=== PATIENT | female | born 1950 | race Caucasian/White ===

== ENCOUNTER → 2024-08-12 | Outpatient (CLI) | payer MEDICARE ==
[2024-08-12 12:57] LABS: Partial Thromboplastin Time 22.8 sec (22.0-30.0)
[2024-08-12 13:03] LABS: Prothrombin Time 10.8 sec (10.0-12.5)
--- NOTE | 2024-08-12 13:17 | CT ---
EXAMINATION TYPE: CT right knee - ZANDRA Protocol DATE OF EXAM: 08/12/2024 12:37 PM COMPARISON: None. CLINICAL INDICATION: Female, 74 years old with history of M17.11 UNILATERAL PRIMARY OSTEOAR; PHH, rig ht zandra knee, pain, TECHNIQUE: Axial images were obtained of the bilateral hips, knee and bilateral ankles: CT right kne e - ZANDRA Protocol, Additional coronal and sagittal reformatted images and soft tissue and bone window were obtained for review of the bilateral hips, knee and bilateral ankles. Contrast used: mL of , (None if empty) Oral contrast used: (None if empty) CT DLP: 763 mGycm, Automated exposure control for dose reduction was used. FINDINGS: The visualized portion of the hips demonstrate mild osteoarthrosis changes with osteophyte formation of the acetabulum. No acute intrapelvic process. The bony structures of the pelvis are intact. The visualized knee demonstrates osteophyte formation of the tibial plateau, the patella and femoral condyles. There is mild subchondral sclerosis of the femoral condyles and tibial plateau. There is j oint space narrowing. No evidence of fracture. The visualized ankles demonstrates multifocal osteoarthrosis changes with osteophyte formation and mi ld joint space narrowing. No evidence of fractures. Other: Scattered colonic diverticula. Fatty umbilical hernia. Fat-containing inguinal hernias bilater ally. Severe atherosclerosis throughout the arterial vasculature visualized. IMPRESSION: Severe osteoarthrosis changes of the knee. [facility], , 08/12/2024 1:14 PM
[2024-08-12 18:42] LABS: HGB 13.8 g/dL (12.0-15.0); MCH 32.5 pg (27.0-32.0); MCHC 32.9 g/dL (32.0-37.0); MCV 98.8 FL (80.0-97.0); Mean Platelet Volume 9.9 FL (9.5-12.2); NRBC Per 100 WBC 0.02 X 10*3/uL (0.00-0.01); Platelet Count 280 X 10*3/uL (140-440); RBC 4.25 X 10*6/uL (4.10-5.20); RDW 14.7 % (11.5-14.5); WBC 7.56 X 10*3/uL (4.50-10.00)
[2024-08-12 19:17] LABS: ALT 22 U/L (8-44); AST 25 U/L (13-35); Albumin 4.5 g/dL (3.8-4.9); Albumin/Globulin Ratio 2.14 Ratio (1.60-3.17); Alkaline Phosphatase 35 U/L (41-126); Blood Urea Nitrogen 17.1 mg/dL (9.0-27.0); Calcium 10.2 mg/dL (8.7-10.3); Carbon Dioxide 25.5 mmol/L (21.6-31.8); Chloride 108 mmol/L (96-109); Globulin 2.1 g/dL (1.6-3.3); Glucose 128 mg/dL (70-110); Potassium 4.9 mmol/L (3.5-5.5); Sodium 148 mmol/L (135-145); Total Bilirubin 1.8 mg/dL (0.3-1.2); Total Protein 6.6 g/dL (6.2-8.2)
== END | disposition home or self-care (01) ==
LOC: RADCTMAIN 11:37
PROVIDERS: ATTEND Orthopaedic Surgery
DX: Z01.818 Encounter for other preprocedural examination (principal); M17.11 Unilateral primary osteoarthritis, right knee; M21.061 Valgus deformity, not elsewhere classified, right knee
CPT/HCPCS: 80053; 83036; 85027; 85610; 85730

== ENCOUNTER → 2024-08-19 | Outpatient (CLI) | payer MEDICARE | END | disposition home or self-care (01) | LOC: LABWHC1 09:03 | PROVIDERS: ATTEND Orthopaedic Surgery | DX: Z01.812 Encounter for preprocedural laboratory examination (principal) | CPT/HCPCS: 86850; 86900; 86901 ==

== ENCOUNTER 2024-08-27 11:19 | Day surgery (SDC) | payer MEDICARE ==
[~2024-08-27 11:19] MED LIST: HYDROmorphone 0.5 MG/0.5 ML SYRINGE IVP PRN; TRANEXAMIC 1,000 MG/100ML-NACL 1,000 MG in SALINE 1 100ML.BAG IV PRN; TRANEXAMIC 1,000 MG/100ML-NACL 1,000 MG in SALINE 1 100ML.BAG IVPB PRN
[2024-08-27] MEDS: IV FLUID CONTINUATION 1,000 ML IV ONE (11:56)
[2024-08-27 12:38] LABS: Glucose,Whole Blood 122 mg/dL (70-110)
[2024-08-27] MEDS: oxyCODONE ER 10 MG TAB.ER.12H PO PRN (12:39)
[2024-08-27] MEDS: DOCUSATE 100 MG CAP PO PRN (12:39)
[2024-08-27] MEDS: KETOROLAC 15 MG/ML 1 ML VIAL IVP PRN (12:40)
[2024-08-27] MEDS: ONDANSETRON 4 MG/2 ML VIAL IVP PRN (12:40)
[2024-08-27] MEDS: FAMOTIDINE 20 MG/2 ML VIAL IVP PRN (12:40)
[2024-08-27] MEDS: ACETAMINOPHEN TAB 500 MG TAB PO PRN (12:40)
[2024-08-27] MEDS: DEXAMETHASONE SOD PHOSPHATE 10 MG/ML 1 ML VIAL IV PRN (12:52)
[2024-08-27] MEDS: HYDROCORTISONE SUCCINATE 100 MG/2 ML VIAL IV STA (12:52)
[2024-08-27] MEDS: MIDAZOLAM 2 MG/2 ML VIAL IV PRN (13:10)
[2024-08-27] MEDS: ROPIVACAINE/EPI/CLONIDINE/KET 50 ML SYRINGE MISCELLANE PRN (13:19)
[2024-08-27] MEDS ORDERED: NEOSTIGMINE 1 MG/ML 10 ML VIAL ONE (13:38)
[2024-08-27] MEDS ORDERED: ROCURONIUM 10 MG/ML (5 ML VIAL) IV ONE (13:38)
[2024-08-27] MEDS ORDERED: MIDAZOLAM 2 MG/2 ML VIAL ONE (13:38)
[2024-08-27] MEDS ORDERED: GLYCOPYRROLATE 0.2 MG/ML 2 ML VIAL ONE (13:38)
[2024-08-27] MEDS ORDERED: TRANEXAMIC 1,000 MG/100ML-NACL PREMIX BAG ONE (13:38)
[2024-08-27] MEDS ORDERED: ROPIVACAINE 5 MG/ML 30 ML VIAL ONE (13:38)
[2024-08-27] MEDS ORDERED: fentaNYL (PF) 50 MCG/ML 2 ML AMP ONE (13:38)
[2024-08-27] MEDS ORDERED: SODIUM CHLORIDE 0.9% (PF) 10 ML VIAL ONE (13:38)
[2024-08-27] MEDS ORDERED: LIDOCAINE 1% INJ 10MG/ML (20 ML MDV) ONE (13:38)
[2024-08-27] MEDS ORDERED: SUCCINYLCHOLINE CHLORIDE 200 MG/10 ML VIAL IV ONE (13:38)
[2024-08-27] MEDS ORDERED: ePHEDrine 50 MG/ML 1 ML VIAL ONE (13:38)
[2024-08-27] MEDS ORDERED: DEXAMETHASONE SOD PHOSPHATE 4 MG/ML 1 ML VIAL ONE (13:38)
[2024-08-27] MEDS ORDERED: PHENYLEPHRINE-0.9% NACL SYG 1,000 MCG/10 ML SYRINGE ONE (13:38)
[2024-08-27] MEDS ORDERED: PROPOFOL 10 MG/ML 20 ML VIAL IV ONE (13:38)
[2024-08-27] MEDS ORDERED: PHENYLEPHRINE 10 MG/ML VIAL ONE (13:38)
[2024-08-27] MEDS: ceFAZolin 2 GM in DEXTROSE 5% IN WATER 50 ML IVPB PRN (13:40)
[2024-08-27] MEDS: LACTATED RINGERS 1,000 ML IV ONE (14:25)
[2024-08-27] MEDS ORDERED: HYDROcodone/APAP 5-325MG 1 EACH TAB PO PRN (15:28)
[2024-08-27] MEDS ORDERED: NA PHOS,M-B/NA PHOS,DI-BA 133 ML ENEMA RECTAL PRN (15:28)
[2024-08-27] MEDS ORDERED: diazePAM 5 MG TAB PO PRN ×2 (15:28)
[2024-08-27] MEDS ORDERED: TEMAZEPAM 15 MG CAP PO PRN (15:28)
[2024-08-27] MEDS ORDERED: NALOXONE 0.4 MG/ML 1 ML VIAL IV PRN (15:28)
[2024-08-27] MEDS ORDERED: HYDROmorphone 0.5 MG/0.5 ML SYRINGE IVP PRN ×3 (15:28)
[2024-08-27] MEDS ORDERED: ONDANSETRON 4 MG/2 ML VIAL IVP PRN (15:28)
[2024-08-27] MEDS ORDERED: bisacodyL 10 MG SUPP RECTAL PRN (15:28)
--- NOTE | 2024-08-27 15:28 | P.OP ---
Date of Procedure: 08/27/24 Preoperative Diagnosis: Severe right knee osteoarthritis Postoperative Diagnosis: Same Procedure(s) Performed: 1. Right total knee arthroplasty 2. Computer assisted musculoskeletal navigation using CT/MRI images Implants: 1. [place] [employer] CR Femur Size #3 2. [place] [employer] [place] Tibial Base Size #3 with 12x50 mm stem 3. [place] [employer] CS poly Size #3, 10-mm 4. [place] [employer] all poly patella, Size #29 Anesthesia: NATHAN, regional Surgeon: Jose Martin Bland Panel Sewer #1: David Doyle Estimated Blood Loss (ml): 100 IV fluids (ml): 800 Pathology: none sent Condition: stable Disposition: PACU Indications for Procedure: I met with the patient preoperatively in the office setting and discussed treatment of their symptomatic knee arthritis. They failed a long course of nonsurgical treatment and elected to proceed with an elective total knee replacement. I discussed the potential risks and complications at length and gave them ample time to ask questions. Risks discussed included: risks from anesthesia, superficial site surgical infection, acute and/or chronic periprosthetic joint infection, delayed wound healing, drainage, wound necrosis, instability, stiffness, stiffness requiring manipulation and/or revision surgery, damage to local blood vessels or nerves, aseptic loosening of the implants, extensor mechanism issues including disruption, patellar maltracking, avascular necrosis etc., continued or worsened knee pain, generalized dissatisfaction with surgical outcome, need for revision surgery, an inability to regain preinjury level of function, DVT, PE, other medical complications, and possibly loss of life or limb. The patient voiced their understanding that while these are the most common complications other less common complications are possible. They provided both their verbal and written consent to go forward with surgery. Operative Findings: Severe tricompartmental knee osteoarthritis. The patient had relatively poor bone quality in the tibia so a 12 x 50 mm stem was added to the universal baseplate to help augment fixation. Description of Procedure: The patient was identified in preoperative holding and the correct operative extremity was verified and marked with a marker. I reviewed the consent form with the patient at length. All of their questions were answered. The patient was given a block by anesthesia. They were then brought back to the operating room. They were transferred onto the operating room table where a general anesthetic, preoperative antibiotics, and tranexamic acid were administered by anesthesia. A tourniquet was applied to the proximal aspect of the operative extremity. The contralateral extremity was padded under the heel and secured to the operating room table with a nonsterile blue towel and tape. The ipsilateral arm was carefully draped across the patient's chest and secured with a pillow and foam. A post was applied over the lateral aspect of the ipsilateral thigh and a bolster was placed under the ipsilateral foot. I verified that the operative extremity was stable and the knee was flexed to 90. The operative extremity was then placed in a leg jiang, nonsterile drapes were applied, and the extremity was prepped and draped sterilely in the standard sterile fashion. Prior to starting surgery timeout was performed identifying the correct patient, operative extremity, and procedure. The leg was then elevated, exsanguinated with an Esmarch bandage, and the tourniquet was inflated. An anterior midline incision was made sharply with a scalpel. Once I had dissected deep to the superficial fascial layer medial and lateral flaps were elevated. A medial parapatellar arthrotomy was created. Upon opening the knee joint there were diffuse arthritic changes in all 3 compartments. The anterior horn of the medial meniscus were sharply released and a medial release was performed around the posterior medial corner of the knee to facilitate retractor placement. The fat pad was excised with electrocautery. Remnants of the ACL and PCL were then excised from the notch. 4 mm pins were then placed within the incision in the medial distal femur and proximal tibia. Arrays were applied to the pins and I verified they were completely tightened. The knee was then registered with the ComQi robot and manipulations in implant position were made to balance the knee and opitmize implant position. Using the Arcenio robotic saw all cuts were made in accordance with our plan. After all bony fragments had been removed the cuts were verified with the planar probe. The tibia was then subluxed forward and sized. The knee was brought into flexion and a lamina engineer steam was placed to allow removal of the meniscal remnants both medially and laterally as well as posterior osteophytes. Local anesthetic was then infiltrated around the joint capsule. Trial implants were then placed within the knee. Range of motion and collateral ligament tension was then evaluated. Adjustments in implant size and position were then made accordingly. Once the knee was felt to be appropriately balanced the Arcenio pins were removed. The pat ana was then cut, sized, and punched. A trial patellar button was then placed. With the trial components in place, the patella tracked midline. The femur was then drilled and the trial component removed. The trial tibial component was then appropriately rotated, pinned, and prepared for the keel. All trial components were then removed from the knee. The knee was thoroughly irrigated with pulsatile lavage. Cement was prepared via vacuum mixing in a bowl on the back table. Once the cement had reached appropriate consistency, I hand pressurized cement into the tibia and gently impacted the tibial implant into place. Cement was carefully removed from around the tibial tray and the poly liner was tapped into placed, engaging the locking mechanism. The femur was then exposed and cement was hand pressurized into the cut surfaces. The femoral implant was gently tapped into place and cement was carefully removed. A wet lap sponge was used to wipe down the bearing surface of the femur and the knee was extended to further pressurize cement. With the knee extended, cement was pressurized into the cut surface of the patella and the patella button was placed and compressed with a clamp. All extruded cement was removed including from the pin sites. The knee was held in extension until the cement had fully hardened. Once the cement had hardened the knee was evaluated one final time with the final polyethylene liner in place. The knee had full extension and flexion and felt stable to varus and valgus stress throughout the arc of motion. The tourniquet was released and with the tourniquet down the patella tracked midline. All bleeders were controlled with electrocautery. The knee was then soaked for 3 minutes with a dilute Betadine soak. The knee was thoroughly irrigated using 3 L of sterile saline and pulsatile lavage. A deep drain was placed. The extensor mechanism was then reapproximated using pop off Vicryl sutures followed by a running barbed suture. The knee was then closed in layers with a 0 strata fix for the deep fascial layer, 2-0 strata fix for the superficial subcutaneous layer and Monocryl and Steri-Strips for the skin. A sterile dressing and drain sponge were applied. I verified that all instrument, sponge, and sharp counts were correct. The patient was then transferred off the operating room table, extubated, and brought to recovery having tolerated the procedure well. David Doyle PA-C was required as a skilled medical assistant prn due to the complexity of surgery for patient positioning, draping, exposure, retraction, closure of wound and application of dressing. PLAN: The patient can weight-bear as tolerated on the operative extremity. DVT prophylaxis with aspirin 81 mg twice a day based on preoperative risk stratification. Follow-up in the office in 2 weeks for wound check and x-rays of the knee including an AP and lateral.
--- NOTE | 2024-08-27 15:46 | P.ANPRN ---
Procedure Note - Anesthesia - Nerve Block Performed Right iPack Single Time Out Performed: Yes (1308) Date of Procedure: 08/27/24 Procedure Start Time: 13:13 Procedure Stop Time: 13:16 Location of Patient: PreOp Indication: Acute Post-Operative Pain, Requested by Surgeon Specifically requested for management of pain by DrLacey: Jose Martin Bland Sedation Type: Sedate with meaningful contact maintained Preparation: Sterile Prep Position: Supine Catheter: None Needle Types: Pajunk Needle Gauge: 21 Ultrasound used to visualize needle placement: Yes Ultrasound used to observe medication spread: Yes Injectate: 0.5% Ropivacaine (see comment for volume) (15cc+10cc nacl pf +Decadron 4mg) Blood Aspirated: No Pain Paresthesia on Injection Noted: No Resistance on Injection: Normal Image Stored and Saved: Yes Events: Uneventful and Well Tolerated
--- NOTE | 2024-08-27 15:46 | P.ANPRN ---
Procedure Note - Anesthesia - Nerve Block Performed Right Adductor Canal Single Time Out Performed: Yes (1308) Date of Procedure: 08/27/24 Procedure Start Time: 13:09 Procedure Stop Time: 13:12 Location of Patient: PreOp Indication: Acute Post-Operative Pain, Requested by Surgeon Specifically requested for management of pain by DrLacey: Jose Martin Bland Sedation Type: Sedate with meaningful contact maintained Preparation: Sterile Prep Position: Supine Catheter: None Needle Types: Pajunk Needle Gauge: 21 Ultrasound used to visualize needle placement: Yes Ultrasound used to observe medication spread: Yes Injectate: 0.5% Ropivacaine (see comment for volume) (15cc+10cc nacl pf +Decadron 4mg) Blood Aspirated: No Pain Paresthesia on Injection Noted: No Resistance on Injection: Normal Image Stored and Saved: Yes Events: Uneventful and Well Tolerated
[2024-08-27 16:16] LABS: Glucose,Whole Blood 190 mg/dL (70-110)
--- NOTE | 2024-08-27 16:16 | XR ---
EXAMINATION TYPE: XR knee limited RT DATE OF EXAM: 08/27/2024 4:11 PM INDICATION: Patient age:Female; 74 years old; Reason for study: Evaluation for Postop abnormality and alignment; PHH. pain COMPARISON: CT right knee 08/12/2024 TECHNIQUE: The Right knee(s) was examined in frontal and crosstable lateral projections. FINDINGS: Status post total knee arthroplasty changes with hardware in appropriate alignment and in tact. No evidence of fracture. Subcutaneous lucencies and lucencies within the joint consistent with surgical changes. Vascular sclerosis. IMPRESSION: Status post total knee arthroplasty changes with hardware intact and appropriate alignment. No fractu res identified. [facility], , 08/27/2024 4:14 PM
[2024-08-27] MEDS: LACTATED RINGERS 1,000 ML IV SCH (16:57)
[2024-08-27] MEDS: SODIUM CHLORIDE 0.9% 1,000 ML IV SCH (17:03)
--- NOTE | 2024-08-27 17:45 | P.CONS ---
History of Present Illness - Reason for Consult Consult date: 08/27/24 - History of Present Illness 74 year old F with PMH of Asthma, osteoporosis, HTN, pre-DM, GERD presents to [facility] for elective surgery. She underwent Right total knee arthroplasty with Dr. Bland. [facility] [place] [facility] consulted for medical management of this patient. 08/27 She reports no pain at this time. Has not urinated yet. Has not had a bowel movement or passed gas. No complaints at this time. General: no distress Derm: warm, dry Head: atraumatic, normocephalic, symmetric Mouth: no lip lesion, mucus membranes moist Cardiovascular: Normal S1 S2. No murmurs, rubs or gallops. Lungs: Clear to auscultation bilaterally, no accessory muscle use Ext: no gross muscle atrophy, no edema, no contractures Neuro: No focal neurologic deficits. Psych: Alert and oriented. Based on my assessment of this patient, this patient meets a high complexity level of care. Asthma not in acute exacerbation: Albuterol neb Q6H PRN SOB/wheezing. Osteoporosis: Resume Alendronate on discharge. Dyslipidemia: Lipitor 20 mg PO QHS. Hypertension: Losartan 50 mg PO QD. Pre-DM: Metformin 500 mg PO BID. GERD: Prilosec 20 mg PO QD. CODE STATUS: FULL CODE. DVT Prophylaxis: ASA BID GI Prophylaxis: Prilosec Designated medical POA if patient is not able to make medical decisions for themselves: Daughter I have reviewed the following outside solar sales consultant notes: Operative note. I have reviewed the results of the following tests: As above. I have ordered the following tests: CBC and BMP in the AM. I have discussed the care of this patient with the following independent historian: Family at bedside. I have independently interpreted the following test below: I have discussed the management of this patient with the following physician: Past Medical History Past Medical History: Asthma, COPD, Diabetes Mellitus, Hyperlipidemia, Hypertension, Osteoarthritis (OA), Respiratory Disorder, Sleep Apnea/CPAP/BIPAP Additional Past Medical History / Comment(s): frequent UTIs, benign colono polyps heart murmur, uses home O2 2L/min [place] prn, Type II DM, does not use her CPAP History of Any Multi-Drug Resistant Organisms: None Reported Past Surgical History: Adenoidectomy, Breast Surgery, Tonsillectomy, Tubal Ligation Additional Past Surgical History / Comment(s): breast reduction, colonoscopy, de viated septum repair x 3, Rt. elbow fracture repair, Rt. 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 Alberto Past Psychological History: No Psychological Hx Reported Smoking Status: Never smoker Past Alcohol Use History: Occasional Additional Past Alcohol Use History / Comment(s): 1-2 months/month Past Drug Use History: None Reported - Past Family History Mother Family Medical History: Congestive Heart Failure (CHF), COPD Additional Family Medical History / Comment(s): in her 90's Brother(s) Family Medical History: Coronary Artery Disease (CAD), Myocardial Infarction (OR) Additional Family Medical History / Comment(s): CABG, age 70's Sister(s) Family Medical History: Coronary Artery Disease (CAD) Additional Family Medical History / Comment(s): CABG Medications and Allergies Home Medications Medication Instructions Recorded Confirmed Type Albuterol Inhaler [Ventolin Hfa 1 - 2 inh INHALATION Q6H PRN 08/23/24 08/27/24 History Inhaler] Albuterol Nebulized [Ventolin 1 dose INHALATION Q6H PRN 08/23/24 08/27/24 History Nebulized] Alendronate Sodium 70 mg PO WEEKLY 08/23/24 08/27/24 History Aspirin [[place] Aspirin EC] 81 mg PO BID 08/23/24 08/27/24 History Atorvastatin [Lipitor] 20 mg PO HS 08/23/24 08/27/24 History B.coagulans,Subtilis/C/D3/Zinc 1 tab PO DAILY 08/23/24 08/27/24 History [Probiotic-Immune Gummy] Biotin 5,000 mcg PO DAILY 08/23/24 08/27/24 History Cephalexin [Keflex] 250 mg PO DAILY 08/23/24 08/27/24 History Cholecalciferol [Vitamin D3 (25 1 tab PO DAILY 08/23/24 08/27/24 History Mcg = 1000 Iu)] Fluconazole 150 mg PO DAILY PRN 08/23/24 08/27/24 History Fluticasone Nasal [place] [Flonase 1 spray INHALATION DAILY PRN 08/23/24 08/27/24 History Nasal [place]] Fluticasone Propion/Salmeterol 2 inh INHALATION HS 08/23/24 08/27/24 History [Advair Hfa 115-21 Mcg Inhaler] Irizia 1 drop BOTH EYES QID PRN 08/23/24 08/27/24 History Losartan [Cozaar] 50 mg PO DAILY 08/23/24 08/27/24 History Mepolizumab [Nucala] 100 mg SQ Q30D 08/23/24 08/27/24 History Nystatin 100,000Unit/gm Cream 1 dose TOPICAL BID PRN 08/23/24 08/27/24 History [Mycostatin Cream] Omeprazole 20 mg PO DAILY 08/23/24 08/27/24 History Theophylline Anhydrous 400 mg PO HS 08/23/24 08/27/24 History [Theophylline ER] Tiotropium 2.5 Mcg/Puff [Spiriva 2 inh INHALATION QAM 08/23/24 08/27/24 History Respimat 2.5 Mcg] metFORMIN HCL ER [Glucophage XR] 500 mg PO BID 08/23/24 08/27/24 History nitrofurantoin macrocrystaL 50 mg PO HS 08/23/24 08/27/24 History predniSONE 20 mg PO DAILY PRN 08/23/24 08/27/24 History Allergies Allergy/AdvReac Type Severity Reaction Status Date / Time clarithromycin [From Biaxin] Allergy Rash/Hives Verified 08/27/24 12:06 Sulfa (Sulfonamide Allergy Nausea & Verified 08/27/24 12:06 Antibiotics) Vomiting Physical Exam Vitals: Vital Signs Temp Pulse Pulse Resp BP BP Pulse Ox 08/27/24 16:27 104 H 16 121/60 97 08/27/24 16:12 101 H 16 135/60 99 08/27/24 15:56 97 F L 107 H 14 142/64 98 08/27/24 13:16 81 16 112/56 96 08/27/24 12:21 98.0 F 98 16 115/64 95 Intake and Output 08/27/24 08/27/24 08/27/24 06:59 14:59 22:59 Intake Total 1550 50 Output Total 100 Balance 1550 -50 Intake: IV 1550 50 Output: Estimated Blood Loss 100 Other: Weight 87.1 kg 87.1 kg Results Labs: Abnormal Lab Results - Last 24 Hours (Table) 08/27/24 08/27/24 Range/Units 12:37 16:09 POC Glucose (mg/dL) 122 H 190 H (70-110) mg/dL
[2024-08-27] MEDS: HYDROcodone/APAP 10-325MG 1 EACH TAB PO PRN (17:51)
[2024-08-27] MEDS: ALBUTEROL NEBULIZED 2.5 MG/3 ML INHALATION PRN (18:06)
[2024-08-27] MEDS: SYMBICORT 160-4.5 MCG INHALER INHALATION SCH (20:16)
[2024-08-27] MEDS: ASPIRIN 81 MG PO SCH (21:46)
[2024-08-27] MEDS: ATORVASTATIN 20 MG TAB PO SCH (21:46)
[2024-08-27] MEDS: SENNOSIDES-DOCUSATE SODIUM 1 EACH TAB PO SCH (21:46)
[2024-08-27] MEDS: ceFAZolin 2 GM in DEXTROSE 50%-WATER VIAL 50 ML IVPB SCH (21:47)
[2024-08-27] MEDS: metFORMIN 500 MG TAB PO SCH (21:52)
[2024-08-28] MEDS: PANTOPRAZOLE 40 MG TABLET PO SCH (06:58)
[2024-08-28] MEDS: LOSARTAN 50 MG TAB PO SCH (09:06)
[2024-08-28 10:03] LABS: Calcium 7.8 mg/dL (8.7-10.3); Carbon Dioxide 21.2 mmol/L (21.6-31.8); Chloride 108 mmol/L (96-109); Glucose 190 mg/dL (70-110); Potassium 4.8 mmol/L (3.5-5.5); Sodium 139 mmol/L (135-145)
--- NOTE | 2024-08-28 10:17 | P.PN ---
Subjective Progress Note Date: 08/28/24 Principal diagnosis: Osteoarthritis right knee. Status post total right knee arthroplasty. This is a 74-year-old female who is status post total right knee arthroplasty. She is postop day #1. She has no new complaints or concerns today. Vital signs are stable. She reports no nausea or vomiting. Objective - Vital Signs Vital signs: Vital Signs Temp 98.5 F 08/28/24 07:37 Pulse 92 08/28/24 07:37 Resp 18 08/28/24 07:37 BP 124/70 08/28/24 07:37 Pulse Ox 97 08/28/24 07:37 FiO2 Intake & Output 08/27/24 08/28/24 08/28/24 18:59 06:59 18:59 Intake Total 2100 Output Total 100 Balance 2000 Weight 87.1 kg Intake: IV 1600 Oral 500 Output: Estimated Blood Loss 100 Other: Voiding Method Toilet # Voids 1 - Exam This is a pleasant 74-year-old female in no acute distress. She is alert and oriented x 3. Exam of the right knee reveals that her dressing is clean, dry and intact. She is able to flex the knee to about 45 degrees actively while sitting in the chair. She has difficulty performing straight leg raise but is able to do it with some assistance. She has full foot and ankle motion without difficulty or pain. Neurovascular status to the lower extremity is intact. - Labs CBC & Chem 7: 08/28/24 03:19 Labs: Abnormal Lab Results - Last 24 Hours (Table) 08/27/24 08/27/24 08/28/24 Range/Units 12:37 16:09 03:19 Carbon Dioxide 21.2 L (21.6-31.8) mmol/L Est GFR (CKD-EPI) 58 L (>=60) Glucose 190 H (70-110) mg/dL POC Glucose (mg/dL) 122 H 190 H (70-110) mg/dL Calcium 7.8 L (8.7-10.3) mg/dL Assessment and Plan (1) Primary osteoarthritis of right knee Current Visit: Yes Status: Acute Code(s): M17.11 - UNILATERAL PRIMARY OSTEOARTHRITIS, RIGHT KNEE SNOMED Code(s): 875276410607475 (2) Status post total right knee replacement Current Visit: Yes Status: Acute Code(s): Z96.651 - PRESENCE OF RIGHT ARTIFICIAL KNEE JOINT SNOMED Code(s): 4277721218272 Plan: The clinical findings are discussed with the patient. We will continue with physical therapy. She is awaiting inpatient rehab Friday if cleared medically.
[2024-08-28 10:19] LABS: Basophils # (A) 0.02 X 10*3/uL (0.00-0.10); Basophils % (A) 0.2 %; Eosinophils # (A) 0 X 10*3/uL (0.04-0.35); Eosinophils % (A) 0 %; HCT 30.2 % (37.2-46.3); Lymphocytes # (A) 0.96 X 10*3/uL (0.90-5.00); MCH 32.9 pg (27.0-32.0); MCHC 33.1 g/dL (32.0-37.0); MCV 99.3 FL (80.0-97.0); Mean Platelet Volume 10.4 FL (9.5-12.2); Monocytes # (A) 0.48 X 10*3/uL (0.20-1.00); Monocytes % (A) 4.5 %; NRBC Per 100 WBC 0.03 X 10*3/uL (0.00-0.01); Neutrophils # (A) 9.12 X 10*3/uL (1.80-7.70); Neutrophils % (A) 85.8 %; Platelet Count 224 X 10*3/uL (140-440); RBC 3.04 X 10*6/uL (4.10-5.20); RDW 14.5 % (11.5-14.5); WBC 10.63 X 10*3/uL (4.50-10.00)
--- NOTE | 2024-08-28 10:55 | P.PN ---
Subjective Progress Note Date: 08/28/24 74 year old F with PMH of Asthma, osteoporosis, HTN, pre-DM, GERD presents to [facility] for elective surgery. She underwent Right total knee arthroplasty with Dr. Bland. [facility] consulted for medical management of this patient. 08/27 She reports no pain at this time. Has not urinated yet. Has not had a bowel movement or passed gas. No complaints at this time. 08/28 Patient was seen and examined. Breathing stable. Urinating freely. No bowel movement but passing gas. Reports some numbness in the base of her right foot. CBC and BMP significant for WBC 10.63, RBC 3.04, Hg 10, Hct 30.2, MCV 99.3, bicarb 21.2, glu 190, Ca 7.8. BP 124/70, HR 92, T 98.5F, RR 18, 97% on 3L NC. General: no distress Derm: warm, dry Head: atraumatic, normocephalic, symmetric Mouth: no lip lesion, mucus membranes moist Cardiovascular: S1 S2 tachy. No murmurs, rubs or gallops. Lungs: Decreased BS bilaterally, no accessory muscle use Ext: no gross muscle atrophy, no edema, no contractures Neuro: No focal neurologic deficits. Psych: Alert and oriented. Based on my assessment of this patient, this patient meets a high complexity level of care. Leukocytosis: Likely reactive. No signs of active infection. Monitor fever profile. Acute blood loss anemia: Which is an expected result of surgery. Asthma/COPD not in acute exacerbation: Albuterol neb Q6H PRN SOB/wheezing. Symbicort 2 INH BID. Spiriva 2 INH QD. Theophylline 400 mg PO QHS. Wean O2. Osteoporosis: Resume Alendronate on discharge. Dyslipidemia: Lipitor 20 mg PO QHS. Hypertension: Losartan 50 mg PO QD. Pre-DM: Metformin 500 mg PO BID. GERD: Prilosec 20 mg PO QD. CODE STATUS: FULL CODE. DVT Prophylaxis: ASA BID GI Prophylaxis: Prilosec Designated medical POA if patient is not able to make medical decisions for themselves: Daughter I have reviewed the following sfdc consultant notes: Operative note. I have reviewed the results of the following tests: CBC, BMP. I have ordered the following tests: I have discussed the care of this patient with the following independent historian: Family. RT. RN. I have independently interpreted the following test below: I have discussed the management of this patient with the following physician: Objective - Vital Signs Vital signs: Vital Signs Temp 98.5 F 08/28/24 07:37 Pulse 92 08/28/24 07:37 Resp 18 08/28/24 07:37 BP 124/70 08/28/24 07:37 Pulse Ox 97 08/28/24 07:37 FiO2 Intake & Output 08/27/24 08/28/24 08/28/24 18:59 06:59 18:59 Intake Total 2100 Output Total 100 Balance 2000 Weight 87.1 kg Intake: IV 1600 Oral 500 Output: Estimated Blood Loss 100 Other: Voiding Method Toilet # Voids 1 - Labs CBC & Chem 7: 08/28/24 03:19 08/28/24 03:19 Labs: Abnormal Lab Results - Last 24 Hours (Table) 08/27/24 08/27/24 08/28/24 Range/Units 12:37 16:09 03:19 WBC 10.63 H (4.50-10.00) X 10*3/uL RBC 3.04 L (4.10-5.20) X 10*6/uL Hgb 10.0 L (12.0-15.0) g/dL Hct 30.2 L (37.2-46.3) % MCV 99.3 H (80.0-97.0) FL MCH 32.9 H (27.0-32.0) pg Immature Gran # 0.05 H (0.00-0.04) X 10*3/uL Neutrophils # 9.12 H (1.80-7.70) X 10*3/uL Eosinophils # 0 L (0.04-0.35) X 10*3/uL NRBC/100 WBC Diff 0.03 H (0.00-0.01) X 10*3/uL Carbon Dioxide (21.6-31.8) mmol/L Est GFR (CKD-EPI) (>=60) Glucose (70-110) mg/dL POC Glucose (mg/dL) 122 H 190 H (70-110) mg/dL Calcium (8.7-10.3) mg/dL 08/28/24 Range/Units 03:19 WBC (4.50-10.00) X 10*3/uL RBC (4.10-5.20) X 10*6/uL Hgb (12.0-15.0) g/dL Hct (37.2-46.3) % MCV (80.0-97.0) FL MCH (27.0-32.0) pg Immature Gran # (0.00-0.04) X 10*3/uL Neutrophils # (1.80-7.70) X 10*3/uL Eosinophils # (0.04-0.35) X 10*3/uL NRBC/100 WBC Diff (0.00-0.01) X 10*3/uL Carbon Dioxide 21.2 L (21.6-31.8) mmol/L Est GFR (CKD-EPI) 58 L (>=60) Glucose 190 H (70-110) mg/dL POC Glucose (mg/dL) (70-110) mg/dL Calcium 7.8 L (8.7-10.3) mg/dL
[2024-08-28] MEDS: ALBUTEROL NEBULIZED 2.5 MG/3 ML INHALATION PRN (12:14)
[2024-08-28] MEDS: TIOTROPIUM 2.5 MCG INHALER INHALATION SCH (12:16)
[2024-08-28] MEDS: SYMBICORT 160-4.5 MCG INHALER INHALATION SCH (12:17)
[2024-08-28] MEDS: ACETAMINOPHEN TAB 325 MG TAB PO PRN (16:32)
[2024-08-28] MEDS: THEOPHYLLINE 24 HOUR 400 MG CAP.ER.24H PO SCH (21:45)
--- NOTE | 2024-08-29 09:09 | P.PN ---
Subjective Progress Note Date: 08/29/24 Principal diagnosis: Osteoarthritis right knee. Status post total right knee arthroplasty. This is a 74-year-old female who is status post total right knee arthroplasty. She is postop day #2. She has no new complaints or concerns today. Vital signs are stable. She continues on 3 L of O2 per nasal cannula. Most recent pulse ox is 98%. She reports no nausea or vomiting. Objective - Vital Signs Vital signs: Vital Signs Temp 98.1 F 08/29/24 07:10 Pulse 84 08/29/24 09:06 Resp 18 08/29/24 07:10 BP 175/82 08/29/24 07:10 Pulse Ox 98 08/29/24 07:10 FiO2 Intake & Output 08/28/24 08/29/24 08/29/24 18:59 06:59 18:59 Other: Voiding Method Toilet # Voids 2 1 - Exam This is a pleasant 74-year-old female in no acute distress. She is alert and oriented x 3. Exam of the right knee reveals that her dressing is clean, dry a nd intact. She has difficulty performing straight leg raise but is able to do it with some assistance. She has full foot and ankle motion without difficulty or pain. Neurovascular status to the lower extremity is intact. - Labs CBC & Chem 7: 08/28/24 03:19 08/28/24 03:19 Labs: Abnormal Lab Results - Last 24 Hours (Table) 08/28/24 08/28/24 Range/Units 03:19 03:19 WBC 10.63 H (4.50-10.00) X 10*3/uL RBC 3.04 L (4.10-5.20) X 10*6/uL Hgb 10.0 L (12.0-15.0) g/dL Hct 30.2 L (37.2-46.3) % MCV 99.3 H (80.0-97.0) FL MCH 32.9 H (27.0-32.0) pg Immature Gran # 0.05 H (0.00-0.04) X 10*3/uL Neutrophils # 9.12 H (1.80-7.70) X 10*3/uL Eosinophils # 0 L (0.04-0.35) X 10*3/uL NRBC/100 WBC Diff 0.03 H (0.00-0.01) X 10*3/uL Carbon Dioxide 21.2 L (21.6-31.8) mmol/L Est GFR (CKD-EPI) 58 L (>=60) Glucose 190 H (70-110) mg/dL Calcium 7.8 L (8.7-10.3) mg/dL Assessment and Plan (1) Primary osteoarthritis of right knee Current Visit: Yes Status: Acute Code(s): M17.11 - UNILATERAL PRIMARY OSTEOARTHRITIS, RIGHT KNEE SNOMED Code(s): 109580577684745 (2) Status post total right knee replacement Current Visit: Yes Status: Acute Code(s): Z96.651 - PRESENCE OF RIGHT ARTIFICIAL KNEE JOINT SNOMED Code(s): 1139328326427 Plan: The clinical findings are discussed with the patient. We will continue with physical therapy. She is awaiting inpatient rehab Friday if cleared medically.
[2024-08-29] MEDS: MAGNESIUM HYDROXIDE 2,400 MG/30 ML CUP PO PRN (09:34)
[2024-08-29] MEDS: hydrOXYzine pamoate 25 MG CAP PO PRN (09:34)
--- NOTE | 2024-08-29 11:38 | P.PN ---
Subjective Progress Note Date: 08/29/24 74 year old F with PMH of Asthma, osteoporosis, HTN, pre-DM, GERD presents to [facility] for elective surgery. She underwent Right total knee arthroplasty with Dr. Bland. [facility] consulted for medical management of this patient. 08/27 She reports no pain at this time. Has not urinated yet. Has not had a bowel movement or passed gas. No complaints at this time. 08/28 Patient was seen and examined. Breathing stable. Urinating freely. No bowel movement but passing gas. Reports some numbness in the base of her right foot. CBC and BMP significant for WBC 10.63, RBC 3.04, Hg 10, Hct 30.2, MCV 99.3, bicarb 21.2, glu 190, Ca 7.8. 08/29 Patient was seen and examined. Doing well. Had a bowel movement yesterday. No new labs done today. Hopeful plans for SNF on Friday. BP 135/70, HR 93, T 98.1F, RR 18, 98% on 3L NC. General: no distress Derm: warm, dry Head: atraumatic, normocephalic, symmetric Mouth: no lip lesion, mucus membranes moist Cardiovascular: S1 S2 tachy. No murmurs, rubs or gallops. Lungs: Decreased BS bilaterally, no accessory muscle use Ext: no gross muscle atrophy, no edema, no contractures Neuro: No focal neurologic deficits. Psych: Alert and oriented. Based on my assessment of this patient, this patient meets a high complexity level of care. Leukocytosis: Likely reactive. No signs of active infection. Monitor fever profile. Acute blood loss anemia: Which is an expected result of surgery. Asthma/COPD not in acute exacerbation: Albuterol neb Q6H PRN SOB/wheezing. Symbicort 2 INH BID. Spiriva 2 INH QD. Theophylline 400 mg PO QHS. Wean O2. Osteoporosis: Resume Alendronate on discharge. Dyslipidemia: Lipitor 20 mg PO QHS. Hypertension: Losartan 50 mg PO QD. Pre-DM: Metformin 500 mg PO BID. GERD: Prilosec 20 mg PO QD. CODE STATUS: FULL CODE. DVT Prophylaxis: ASA BID GI Prophylaxis: Prilosec Designated medical POA if patient is not able to make medical decisions for themselves: Daughter I have reviewed the following public relations consultant notes: Ortho note. I have reviewed the results of the following tests: I have ordered the following tests: I have discussed the care of this patient with the following independent historian: I have independently interpreted the following test below: I have discussed the management of this patient with the following physician: Objective - Vital Signs Vital signs: Vital Signs Temp 98.1 F 08/29/24 07:10 Pulse 93 08/29/24 09:27 Resp 18 08/29/24 07:10 BP 135/70 08/29/24 09:27 Pulse Ox 98 08/29/24 07:10 FiO2 Intake & Output 08/28/24 08/29/24 08/29/24 18:59 06:59 18:59 Other: Voiding Method Toilet # Voids 2 1 - Labs CBC & Chem 7: 08/28/24 03:19 08/28/24 03:19
[2024-08-29] MEDS: SYMBICORT 160-4.5 MCG INHALER INHALATION SCH (20:58)
--- NOTE | 2024-08-30 07:53 | P.PN ---
Subjective Patient doing well this morning. Some pain in her knee but otherwise doing well. Objective - Vital Signs Vital signs: Vital Signs Temp 98.5 F 08/30/24 02:00 Pulse 77 08/30/24 02:21 Resp 18 08/30/24 02:21 BP 145/75 08/30/24 02:00 Pulse Ox 95 08/30/24 02:00 FiO2 Intake & Output 08/29/24 08/30/24 08/30/24 18:59 06:59 18:59 Intake Total 240 Balance 240 Intake: Oral 240 Other: Voiding Method Toilet # Voids 1 2 # Bowel Movements 1 - Exam Patient is resting comfortably in her bed. She is alert and able to answer questions. A focused exam of the right knee was conducted. On inspection her dressing is in place. There is moderate swelling throughout the leg but her compartments are soft and compressible. Femoral nerve function is intact. She able to actively plantarflex and dorsiflex her ankle and her toes. - Labs CBC & Chem 7: 08/28/24 03:19 08/28/24 03:19 Assessment and Plan Assessment: Status post right total knee replacement Plan: Continue treatment as outlined previously. Weight-bear as tolerated on her right leg. Up with assistance and a walker. DVT prophylaxis with aspirin. Discharge planning is in progress and she will likely need discharge to rehab/SNF today.
[2024-08-30 09:01] LABS: Basophils # (A) 0.06 X 10*3/uL (0.00-0.10); Basophils % (A) 0.7 %; Eosinophils # (A) 0.12 X 10*3/uL (0.04-0.35); Eosinophils % (A) 1.4 %; HCT 29.5 % (37.2-46.3); HGB 9.3 g/dL (12.0-15.0); Lymphocytes # (A) 3.27 X 10*3/uL (0.90-5.00); MCHC 31.5 g/dL (32.0-37.0); MCV 101.4 FL (80.0-97.0); Mean Platelet Volume 10.2 FL (9.5-12.2); Monocytes # (A) 0.73 X 10*3/uL (0.20-1.00); Monocytes % (A) 8.7 %; NRBC Per 100 WBC 0.03 X 10*3/uL (0.00-0.01); Neutrophils # (A) 4.15 X 10*3/uL (1.80-7.70); Neutrophils % (A) 49.6 %; Platelet Count 227 X 10*3/uL (140-440); RBC 2.91 X 10*6/uL (4.10-5.20); RDW 15.1 % (11.5-14.5); WBC 8.38 X 10*3/uL (4.50-10.00)
--- NOTE | 2024-08-30 13:47 | P.PN ---
Subjective Progress Note Date: 08/30/24 Hospital Course: 74 year old F with PMH of Asthma, osteoporosis, HTN, pre-DM, GERD presents to [facility] for elective surgery. She underwent Right total knee arthroplasty with Dr. Bland. [facility] consulted for medical management of this patient. 08/30: Seen and examined at bedside, doing well, pending placement, no active complaints. Stable for discharge from medical standpoint Blood work reviewed, hemoglobin continues to drop however relatively stable at 9.3, no leukocytosis Pertinent positives and negatives as discussed above, a complete review of systems was performed and all other systems are negative. Vitals Signs Reviewed. General: [nontoxic], [no distress], [appears at stated age] Derm: [warm], [dry] Head: [atraumatic], [normocephalic], [symmetric] Eyes: [EOMI], [no lid lag], [anicteric sclera] Mouth: [no lip lesion], [mucus membranes moist] Cardiovascular: [S1S2 reg], systolic murmur] Lungs: [CTA bilateral], [no rhonchi, no rales] , [no accessory muscle use] Abdominal: [soft], [ nontender to palpation], [no guarding], [no appreciable organomegaly] Ext: [no gross muscle atrophy], [no edema], [no contractures] Neuro: [ CN II-XI grossly intact], [no focal neuro deficits] Psych: [Alert], [oriented], [appropriate affect] Assessment and Plan: Leukocytosis, resolved: Likely reactive. No signs of active infection. Monitor fever profile. Acute blood loss anemia: Which is an expected result of surgery. Asthma/COPD not in acute exacerbation: Albuterol neb Q6H PRN SOB/wheezing. Symbicort 2 INH BID. Spiriva 2 INH QD. Theophylline 400 mg PO QHS. Wean O2. She states that she uses oxygen at home as needed, has portable concentrator Osteoporosis: Resume Alendronate on discharge. Dyslipidemia: Lipitor 20 mg PO QHS. Hypertension: Losartan 50 mg PO QD. Pre-DM: Metformin 500 mg PO BID. GERD: Prilosec 20 mg PO QD. DVT ppx: Aspirin twice daily per Ortho Code status: Full code Review of notes: Ortho Reviewed lab work CBC Objective - Vital Signs Vital signs: Vital Signs Temp 99.2 F 08/30/24 07:30 Pulse 85 08/30/24 09:30 Resp 18 08/30/24 08:00 BP 116/71 08/30/24 07:30 Pulse Ox 95 08/30/24 09:21 FiO2 Intake & Output 08/29/24 08/30/24 08/30/24 18:59 06:59 18:59 Intake Total 240 Balance 240 Intake: Oral 240 Other: Voiding Method Toilet Toilet # Voids 1 2 # Bowel Movements 1 - Labs CBC & Chem 7: 08/30/24 02:38 08/28/24 03:19 Labs: Abnormal Lab Results - Last 24 Hours (Table) 08/30/24 Range/Units 02:38 RBC 2.91 L (4.10-5.20) X 10*6/uL Hgb 9.3 L (12.0-15.0) g/dL Hct 29.5 L (37.2-46.3) % MCV 101.4 H (80.0-97.0) FL MCHC 31.5 L (32.0-37.0) g/dL RDW 15.1 H (11.5-14.5) % Immature Gran # 0.05 H (0.00-0.04) X 10*3/uL NRBC/100 WBC Diff 0.03 H (0.00-0.01) X 10*3/uL
[2024-08-30 20:34] LABS: Glucose,Whole Blood 130 mg/dL (70-110)
[2024-08-31 06:13] LABS: Glucose,Whole Blood 161 mg/dL (70-110)
--- NOTE | 2024-08-31 10:32 | P.PN ---
Subjective Progress Note Date: 08/31/24 Hospital Course: 74 year old F with PMH of Asthma, osteoporosis, HTN, pre-DM, GERD presents to [facility] for elective surgery. She underwent Right total knee arthroplasty with Dr. Bland. [facility] consulted for medical management of this patient. 08/30: Seen and examined at bedside, doing well, pending placement, no active complaints. Stable for discharge from medical standpoint Blood work reviewed, hemoglobin continues to drop however relatively stable at 9.3, no leukocytosis 08/31: Seen and examined at bedside, doing well, pending placement, pain is well- controlled Pertinent positives and negatives as discussed above, a complete review of systems was performed and all other systems are negative. Vitals Signs Reviewed. General: [nontoxic], [no distress], [appears at stated age] Derm: [warm], [dry] Head: [atraumatic], [normocephalic], [symmetric] Eyes: [EOMI], [no lid lag], [anicteric sclera] Mouth: [no lip lesion], [mucus membranes moist] Cardiovascular: [S1S2 reg], systolic murmur] Lungs: [CTA bilateral], [no rhonchi, no rales] , [no accessory muscle use] Abdominal: [soft], [ nontender to palpation], [no guarding], [no appreciable organomegaly] Ext: [no gross muscle atrophy], [no edema], [no contractures] Neuro: [ CN II-XI grossly intact], [no focal neuro deficits] Psych: [Alert], [oriented], [appropriate affect] Assessment and Plan: Leukocytosis, resolved: Likely reactive. No signs of active infection. Monitor fever profile. Acute blood loss anemia: Which is an expected result of surgery. Asthma/COPD not in acute exacerbation: Albuterol neb Q6H PRN SOB/wheezing. Symbicort 2 INH BID. Spiriva 2 INH QD. Theophylline 400 mg PO QHS. Wean O2. She states that she uses oxygen at home as needed, has portable concentrator Osteoporosis: Resume Alendronate on discharge. Dyslipidemia: Lipitor 20 mg PO QHS. Hypertension: Losartan 50 mg PO QD. Pre-DM: Metformin 500 mg PO BID. GERD: Prilosec 20 mg PO QD. DVT ppx: Aspirin twice daily per Ortho Code status: Full code Review of notes: Ortho Reviewed lab work POC blood glucose Objective - Vital Signs Vital signs: Vital Signs Temp 98.8 F 08/31/24 07:22 Pulse 88 08/31/24 09:00 Resp 18 08/31/24 07:22 BP 133/75 08/31/24 07:22 Pulse Ox 94 L 08/31/24 08:51 FiO2 Intake & Output 08/30/24 08/31/24 08/31/24 18:59 06:59 18:59 Other: Voiding Method Toilet Toilet # Voids 4 1 1 # Bowel Movements 1 - Labs CBC & Chem 7: 08/30/24 02:38 08/28/24 03:19 Labs: Abnormal Lab Results - Last 24 Hours (Table) 08/30/24 08/31/24 Range/Units 20:25 06:07 POC Glucose (mg/dL) 130 H 161 H (70-110) mg/dL
--- NOTE | 2024-08-31 10:41 | P.PN ---
Progress Note - Text Patient was seen this morning. She is doing relatively well. We are waiting authorization for discharge to rehab.
[2024-08-31 11:40] LABS: Glucose,Whole Blood 145 mg/dL (70-110)
[2024-08-31 16:35] LABS: Glucose,Whole Blood 145 mg/dL (70-110)
[2024-08-31 20:27] LABS: Glucose,Whole Blood 125 mg/dL (70-110)
[2024-09-01 06:12] LABS: Glucose,Whole Blood 138 mg/dL (70-110)
--- NOTE | 2024-09-01 10:59 | P.PN ---
Subjective Progress Note Date: 09/01/24 Hospital Course: 74 year old F with PMH of Asthma, osteoporosis, HTN, pre-DM, GERD presents [facility] for elective surgery. She underwent Right total knee arthroplasty with Dr. Bland. [facility] consulted for medical management of this patient. 08/30: Seen and examined at bedside, doing well, pending placement, no active complaints. Stable for discharge from medical standpoint Blood work reviewed, hemoglobin continues to drop however relatively stable at 9.3, no leukocytosis 08/31: Seen and examined at bedside, doing well, pending placement, pain is well- controlled 09/01: Seen and examined at bedside, doing well, shortness of breath at baseline, getting ready for a walk with PT. Pending placement Pertinent positives and negatives as discussed above, a complete review of systems was performed and all other systems are negative. Vitals Signs Reviewed. General: [nontoxic], [no distress], [appears at stated age] Derm: [warm], [dry] Head: [atraumatic], [normocephalic], [symmetric] Eyes: [EOMI], [no lid lag], [anicteric sclera] Mouth: [no lip lesion], [mucus membranes moist] Cardiovascular: [S1S2 reg], systolic murmur] Lungs: [CTA bilateral], [no rhonchi, no rales] , [no accessory muscle use] Abdominal: [soft], [ nontender to palpation], [no guarding], [no appreciable organomegaly] Ext: [no gross muscle atrophy], [no edema], [no contractures] Neuro: [ CN II-XI grossly intact], [no focal neuro deficits] Psych: [Alert], [oriented], [appropriate affect] Assessment and Plan: Leukocytosis, resolved: Likely reactive. No signs of active infection. Monitor for fever, patient has been afebrile Acute blood loss anemia: Which is an expected result of surgery. Asthma/COPD not in acute exacerbation: Albuterol neb Q6H PRN SOB/wheezing. Symbicort 2 INH BID. Spiriva 2 INH QD. Theophylline 400 mg PO QHS. Wean O2. She states that she uses oxygen at home as needed, has portable concentrator. Remains on supplemental oxygen with nasal cannula at 3 L satting at 98%, wean off as tolerated Osteoporosis: Resume Alendronate on discharge. Dyslipidemia: Lipitor 20 mg PO QHS. Hypertension: Losartan 50 mg PO QD. Pre-DM: Metformin 500 mg PO BID. GERD: Prilosec 20 mg PO QD. DVT ppx: Aspirin twice daily per Ortho Code status: Full code Review of notes: Ortho Reviewed lab work POC blood glucose Objective - Vital Signs Vital signs: Vital Signs Temp 98.2 F 09/01/24 07:28 Pulse 82 09/01/24 07:53 Resp 16 09/01/24 07:28 BP 137/78 09/01/24 07:28 Pulse Ox 98 09/01/24 07:41 FiO2 Intake & Output 08/31/24 09/01/24 09/01/24 18:59 06:59 18:59 Intake Total 600 Balance 600 Intake: Oral 600 Other: Voiding Method Toilet # Voids 1 1 1 # Bowel Movements 1 - Labs CBC & Chem 7: 08/30/24 02:38 08/28/24 03:19 Labs: Abnormal Lab Results - Last 24 Hours (Table) 08/31/24 08/31/24 08/31/24 Range/Units 11:38 16:32 20:26 POC Glucose (mg/dL) 145 H 145 H 125 H (70-110) mg/dL 09/01/24 Range/Units 06:05 POC Glucose (mg/dL) 138 H (70-110) mg/dL
[2024-09-01 11:29] LABS: Glucose,Whole Blood 174 mg/dL (70-110)
[2024-09-01 16:41] LABS: Glucose,Whole Blood 158 mg/dL (70-110)
[2024-09-01 20:18] LABS: Glucose,Whole Blood 149 mg/dL (70-110)
[2024-09-02 06:26] LABS: Glucose,Whole Blood 202 mg/dL (70-110)
[2024-09-02 08:21] VITALS: BP 146/75; RESP 18; TEMP 98.1
--- NOTE | 2024-09-02 08:31 | P.DS ---
Providers Attending physician: Jose Martin Bland Consults: 08/27/24 15:28 Consult Physician Routine Consulting Provider: Kathrin Duarte Consult Reason/Comments: post op medical management Do you want consulting provider notified?: Yes Primary care physician: Stated None Hospital Course: This is a 74-year-old patient, with past medical history of severe knee osteoarthritis, who failed nonsurgical conservative management. On 08/27/2024 the patient presented to the [facility] pre-op department for scheduled zandra total knee arthroplasty with Dr. Bland. The patient tolerated the procedure well. The patient was transferred to the orthopedic floor. The patient has had difficulty ambulating on their own due to weakness. Patient continued to need assistance to get to the toilet and with transfers. Physical therapy recommended short acute rehab. Plan to transfer to short acute rehab today. Patient was examined at bedside this morning. Patient is resting comfortably in chair. No apparent distress. They are awake, alert and able to answer questions. Inspection: The surgical dressing is intact, there is no drainage or strikethrough. The skin surrounding the dressing is free of erythema. There is mild swelling in the operative thigh. Palpation: The operative calf is soft to compression. No calf tenderness. Neurovascular: Operative femoral nerve function is intact. The patient is able to actively plantarflex and dorsiflex their operative ankle and toes. Operative extremity sensation is intact to light touch throughout. Start form completed and placed in the patient's chart. Paper prescription placed in the patient's chart. Plan follow up in two weeks in our office. Please see med rec for a list of accurate medications. Assessment: Status post right total knee arthroplasty for severe right knee osteoarthritis Right knee pain Multiple medical problems Plan - Discharge Summary Discharge Rx Participant: No New Discharge Prescriptions: New Aspirin 81 mg PO BID #60 tab Docusate [Colace] 100 mg PO BID #60 capsule HYDROcodone/APAP 5-325MG [Mikana 5-325] 1 - 2 tab PO Q6HR PRN #24 tab PRN Reason: Pain Ondansetron [Zofran] 4 mg PO Q8HR PRN #12 tab PRN Reason: Nausea hydrOXYzine pamoate [Vistaril] 25 mg PO Q6HR PRN #12 capsule PRN Reason: Anxiety Continue Albuterol Inhaler [Ventolin Hfa Inhaler] 1 - 2 inh INHALATION Q6H PRN PRN Reason: Shortness Of Breath Alendronate Sodium 70 mg PO WEEKLY nitrofurantoin macrocrystaL 50 mg PO HS metFORMIN HCL ER [Glucophage XR] 500 mg PO BID Omeprazole 20 mg PO DAILY Losartan [Cozaar] 50 mg PO DAILY Fluticasone Nasal [place] [Flonase Nasal [place]] 1 spray INHALATION DAILY PRN PRN Reason: allergies Fluconazole 150 mg PO DAILY PRN PRN Reason: yeast infection Cholecalciferol [Vitamin D3 (25 Mcg = 1000 Iu)] 1 tab PO DAILY Atorvastatin [Lipitor] 20 mg PO HS Albuterol Nebulized [Ventolin Nebulized] 1 dose INHALATION Q6H PRN PRN Reason: Shortness Of Breath Irizia 1 drop BOTH EYES QID PRN PRN Reason: dry eyes B.coagulans,Subtilis/C/D3/Zinc [Probiotic-Immune Gummy] 1 tab PO DAILY Nystatin 100,000Unit/gm Cream [Mycostatin Cream] 1 dose TOPICAL BID PRN PRN Reason: Rash predniSONE 20 mg PO DAILY PRN PRN Reason: COPD excacerbation Fluticasone Propion/Salmeterol [Advair Hfa 115-21 Mcg Inhaler] 2 inh INHALATION HS Mepolizumab [Nucala] 100 mg SQ Q30D Tiotropium 2.5 Mcg/Puff [Spiriva Respimat 2.5 Mcg] 2 inh INHALATION QAM Theophylline Anhydrous [Theophylline ER] 400 mg PO HS Cephalexin [Keflex] 250 mg PO DAILY Biotin 5,000 mcg PO DAILY No Action Aspirin [[place] Aspirin EC] 81 mg PO BID Discharge Medication List Albuterol Inhaler [Ventolin Hfa Inhaler] 1 - 2 inh INHALATION Q6H PRN 08/23/24 [History] Albuterol Nebulized [Ventolin Nebulized] 1 dose INHALATION Q6H PRN 08/23/24 [History] Alendronate Sodium 70 mg PO WEEKLY 08/23/24 [History] Aspirin [[place] Aspirin EC] 81 mg PO BID 08/23/24 [History] Atorvastatin [Lipitor] 20 mg PO HS 08/23/24 [History] B.coagulans,Subtilis/C/D3/Zinc [Probiotic-Immune Gummy] 1 tab PO DAILY 08/23/24 [History] Biotin 5,000 mcg PO DAILY 08/23/24 [History] Cephalexin [Keflex] 250 mg PO DAILY 08/23/24 [History] Cholecalciferol [Vitamin D3 (25 Mcg = 1000 Iu)] 1 tab PO DAILY 08/23/24 [History] Fluconazole 150 mg PO DAILY PRN 08/23/24 [History] Fluticasone Nasal [place] [Flonase Nasal [place]] 1 spray INHALATION DAILY PRN 08/23/24 [History] Fluticasone Propion/Salmeterol [Advair Hfa 115-21 Mcg Inhaler] 2 inh INHALATION HS 08/23/24 [History] Irizia 1 drop BOTH EYES QID PRN 08/23/24 [History] Losartan [Cozaar] 50 mg PO DAILY 08/23/24 [History] Mepolizumab [Nucala] 100 mg SQ Q30D 08/23/24 [History] Nystatin 100,000Unit/gm Cream [Mycostatin Cream] 1 dose TOPICAL BID PRN 08/23/24 [History] Omeprazole 20 mg PO DAILY 08/23/24 [History] Theophylline Anhydrous [Theophylline ER] 400 mg PO HS 08/23/24 [History] Tiotropium 2.5 Mcg/Puff [Spiriva Respimat 2.5 Mcg] 2 inh INHALATION QAM 08/23/24 [History] metFORMIN HCL ER [Glucophage XR] 500 mg PO BID 08/23/24 [History] nitrofurantoin macrocrystaL 50 mg PO HS 08/23/24 [History] predniSONE 20 mg PO DAILY PRN 08/23/24 [History] Aspirin 81 mg PO BID #60 tab 08/30/24 [Rx] Docusate [Colace] 100 mg PO BID #60 capsule 08/30/24 [Rx] HYDROcodone/APAP 5-325MG [Mikana 5-325] 1 - 2 tab PO Q6HR PRN #24 tab 08/30/24 [Rx] Ondansetron [Zofran] 4 mg PO Q8HR PRN #12 tab 08/30/24 [Rx] hydrOXYzine pamoate [Vistaril] 25 mg PO Q6HR PRN #12 capsule 08/30/24 [Rx] Follow up Appointment(s)/Referral(s): Jose Martin Bland MD [Medical Doctor] - 2 Weeks Activity/Diet/Wound Care/Special Instructions: 1. Weight-bear as tolerated on your operative extremity unless instructed otherwise. Use a walker or other assistive device to ambulate. 2. Leave surgical dressing in place. If your dressing becomes saturated with blood, there is drainage, or the dressing becomes loose please contact the office. 3. It is okay to shower with your surgical dressing, but do not submerge in water (no hot tubs, bath's, swimming etc.) 4. Make sure to take her blood clot prevention medication as prescribed (aspirin, Eliquis, Xarelto, and Plavix are commonly prescribed medications for blood clot prevention) 5. While taking Mikana or Percocet for pain make sure you're taking a stool softener (Colace) and drink lots of water. Paper prescription placed in patient's chart. 6. Keep all follow-up appointments as scheduled. You will usually be seen in 1-2 weeks following surgery. 7. Please contact the office with any questions or concerns [phone] Discharge Disposition: TRANSFER TO SNF/ECF
[2024-09-02 11:48] VITALS: BMI 35.1
--- NOTE | 2024-09-02 11:48 | P.PN ---
Subjective Progress Note Date: 09/02/24 Hospital Course: 74 year old F with PMH of Asthma, osteoporosis, HTN, pre-DM, GERD presents to [facility] for elective surgery. She underwent Right total knee arthroplasty with Dr. Bland. [facility] consulted for medical management of this patient. 09/02: Seen and examined at bedside, not in any distress, getting ready for discharge, cleared from medical standpoint, had a bowel movement this morning. Patient's Mepolizumab will be on hold during her rehab stay. Can be resumed after Pertinent positives and negatives as discussed above, a complete review of systems was performed and all other systems are negative. Vitals Signs Reviewed. General: [nontoxic], [no distress], [appears at stated age] Derm: [warm], [dry] Head: [atraumatic], [normocephalic], [symmetric] Eyes: [EOMI], [no lid lag], [anicteric sclera] Mouth: [no lip lesion], [mucus membranes moist] Cardiovascular: [S1S2 reg], systolic murmur] Lungs: [CTA bilateral], [no rhonchi, no rales] , [no accessory muscle use] Abdominal: [soft], [ nontender to palpation], [no guarding], [no appreciable organomegaly] Ext: [no gross muscle atrophy], [no edema], [no contractures] Neuro: [ CN II-XI grossly intact], [no focal neuro deficits] Psych: [Alert], [oriented], [appropriate affect] Assessment and Plan: Leukocytosis, resolved: Likely reactive. No signs of active infection. Monitor for fever, patient has been afebrile Acute blood loss anemia: Which is an expected result of surgery. Asthma/COPD not in acute exacerbation: Albuterol neb Q6H PRN SOB/wheezing. Symbicort 2 INH BID. Spiriva 2 INH QD. Theophylline 400 mg PO QHS. Wean O2. She states that she uses oxygen at home as needed, has portable concentrator. Remains on supplemental oxygen with nasal cannula at 3 L satting at 98%, wean off as tolerated Osteoporosis: Resume Alendronate on discharge.Patient's Mepolizumab will be on hold during her rehab stay. Can be resumed after Dyslipidemia: Lipitor 20 mg PO QHS. Hypertension: Losartan 50 mg PO QD. Pre-DM: Metformin 500 mg PO BID. GERD: Prilosec 20 mg PO QD. Discussed with RN and CM, Isaias Brown DVT ppx: Aspirin twice daily per Ortho Code status: Full code Review of notes: Ortho Reviewed lab work POC blood glucose Objective - Vital Signs Vital signs: Vital Signs Temp 98.1 F 09/02/24 07:05 Pulse 92 09/02/24 08:39 Resp 18 09/02/24 07:05 BP 146/75 09/02/24 07:05 Pulse Ox 95 09/02/24 08:20 FiO2 Intake & Output 09/01/24 09/02/24 09/02/24 18:59 06:59 18:59 Other: Voiding Method Toilet # Voids 1 6 - Labs CBC & Chem 7: 08/30/24 02:38 08/28/24 03:19 Labs: Abnormal Lab Results - Last 24 Hours (Table) 09/01/24 09/01/24 09/02/24 Range/Units 16:40 20:14 06:23 POC Glucose (mg/dL) 158 H 149 H 202 H (70-110) mg/dL
[2024-09-02 11:59] VITALS: PULSE 90
[2024-09-02 12:11] LABS: Glucose,Whole Blood 127 mg/dL (70-110)
== END 2024-09-02 15:01 ==
LOC: OR 11:19 → 4SSUR 15:37 → OR 09-02 15:01
PROVIDERS: ATTEND Orthopaedic Surgery
DX: M17.11 Unilateral primary osteoarthritis, right knee (principal); G89.18 Other acute postprocedural pain; D62 Acute posthemorrhagic anemia; D72.829 Elevated white blood cell count, unspecified; M21.061 Valgus deformity, not elsewhere classified, right knee; M81.0 Age-related osteoporosis without current pathological fracture; I10 Essential (primary) hypertension; R73.03 Prediabetes; K21.9 Gastro-esophageal reflux disease without esophagitis; J44.9 Chronic obstructive pulmonary disease, unspecified; E78.5 Hyperlipidemia, unspecified; Z87.440 Personal history of urinary (tract) infections; Z79.899 Other long term (current) drug therapy; Z79.84 Long term (current) use of oral hypoglycemic drugs; Z79.82 Long term (current) use of aspirin; Z79.51 Long term (current) use of inhaled steroids; Z88.2 Allergy status to sulfonamides; Z88.1 Allergy status to other antibiotic agents
CPT/HCPCS: 0055T; 27447; 64447; 64473; 80048; 85025; 94640; 94760